=== PATIENT | male | born 1950 | race Caucasian/White ===

== ENCOUNTER → 2018-07-25 | Outpatient (CLI) | payer MEDICARE ==
[2018-07-25 11:53] LABS: HEMATOCRIT 39.1 % (42.0-52.0); HEMOGLOBIN 13.2 g/dl (13.5-17.5); MEAN CORPUSCULAR HEMOGLOBIN 29.7 pg (27.0-33.0); MEAN CORPUSCULAR HGB CONC 33.8 g/dl (32.0-36.5); MEAN CORPUSCULAR VOLUME 87.9 fl (80.0-96.0); PLATELET COUNT, AUTOMATED 249 10^3/uL (150-450); RED BLOOD COUNT 4.45 10^6/uL (4.30-6.10); WHITE BLOOD COUNT 5.9 10^3/uL (4.0-10.0)
[2018-07-25 12:14] LABS: ALBUMIN 3.9 GM/DL (3.2-5.2); ALT/SGPT 24 U/L (12-78); BILIRUBIN,TOTAL 0.3 MG/DL (0.2-1.0); BLOOD UREA NITROGEN 16 MG/DL (7-18); CALCIUM LEVEL 8.4 MG/DL (8.8-10.2); CARBON DIOXIDE LEVEL 26 MEQ/L (21-32); CHLORIDE LEVEL 110 MEQ/L (98-107); CHOLESTEROL LEVEL 167 MG/DL (<200); CHOLESTEROL RISK RATIO 3.092 (<5); CREATININE FOR GFR 1.05 MG/DL (0.70-1.30); GLOMERULAR FILTRATION RATE > 60.0 (>49); GLUCOSE, FASTING 99 MG/DL (70-100); HDL CHOLESTEROL 54 MG/DL (>40); LDL CHOLESTEROL 86 MG/DL (<100); NON-HDL-C 113 MG/DL; POTASSIUM SERUM 3.8 MEQ/L (3.5-5.1); SODIUM LEVEL 142 MEQ/L (136-145); TOTAL PROTEIN 7.6 GM/DL (6.4-8.2); TRIGLYCERIDES LEVEL 133 MG/DL (<150)
--- NOTE | 2018-07-25 14:29 | REP ---
Clinical: Hypertension . Comparison: 06/13/2015 . Technique: PA and lateral. Findings: The mediastinum and cardiac silhouette are normal. The lung lauren are clear and without acute consolidation, effusion, or pneumothorax. The skeletal structures are intact and normal. Impression: 1. No acute cardiopulmonary process. Electronically Signed by Javon Acuña MD 07/25/2018 02:20 P
== END ==
LOC: M LAB 10:58
PROVIDERS: ATTEND Family Medicine
DX: R53.83 Other fatigue (principal); E03.9 Hypothyroidism, unspecified; I51.7 Cardiomegaly

== ENCOUNTER → 2018-11-14 | Outpatient (CLI) | payer MEDICARE ==
[2018-11-14 07:21] LABS: BLOOD UREA NITROGEN 22 MG/DL (7-18); CARBON DIOXIDE LEVEL 28 MEQ/L (21-32); CHLORIDE LEVEL 110 MEQ/L (98-107); CPK CREATINE PHOSPHOKINASE 160 U/L (39-308); CREATININE FOR GFR 1.23 MG/DL (0.70-1.30); GLOMERULAR FILTRATION RATE > 60.0 (>49); GLUCOSE, FASTING 98 MG/DL (70-100); MAGNESIUM LEVEL 2.1 MG/DL (1.8-2.4); SODIUM LEVEL 142 MEQ/L (136-145)
== END ==
LOC: M LAB 06:28
PROVIDERS: ATTEND Internal Medicine Cardiovascular Disease
DX: R25.2 Cramp and spasm (principal)

== ENCOUNTER 2019-09-10 09:57 | Emergency (ER) | payer MEDICARE ==
[~2019-09-10] VITALS: Ht 167.6 cm; Wt 88.6 kg
[2019-09-10] MEDS ORDERED: PANT40TA3 (10:10)
[2019-09-10] MEDS ORDERED: SILD100T (10:10)
[2019-09-10] MEDS ORDERED: AMLO-179 (10:10)
[2019-09-10] MEDS ORDERED: SIMV40TA20 (10:10)
[2019-09-10] MEDS ORDERED: BRIM0.2S13 (10:10)
[2019-09-10] MEDS ORDERED: HYDR12.55 (10:10)
[2019-09-10] MEDS ORDERED: MORPHINE 4 MG/ML 1ML VIAL/SYRINGE (J2270) As Ordered ONE (10:55)
[2019-09-10] MEDS ORDERED: MORPHINE 4 MG/ML 1ML VIAL/SYRINGE (J2270) IV ONE (11:00)
--- NOTE | 2019-09-10 11:41 | REP ---
TIB/FIB SERIES: Four views. HISTORY: Trauma. FINDINGS: Four views of the right tibia and fibula demonstrate a distal fibular fracture in the distal fibular diaphysis. There is slight comminution. No significant displacement. There is a transversely oriented medial malleolar fracture as well. Mortise is intact. The patient is status post previous open reduction internal fixation for calcaneal fracture. IMPRESSION: Distal tib/fib fractures at the ankle as above. No proximal fracture is seen. Electronically Signed by Danny White MD 09/10/2019 02:07 P
[2019-09-10 11:45] VITALS: BP 121/72
--- NOTE | 2019-09-10 11:54 | REP ---
RIGHT ANKLE SERIES: Four views. HISTORY: Trauma. FINDINGS: Four views right ankle demonstrate a comminuted transversely oriented distal fibular diaphyseal fracture and a horizontally oriented minimally displaced medial malleolar fracture. Medial malleolar fracture fragment is displaced 2 mm with corresponding subtle intra-articular step-off. There is a posterior malleolar fracture noted as well. No dislocation. Prior open reduction internal fixation calcaneal fracture hardware is seen. IMPRESSION: Trimalleolar fracture without dislocation. Electronically Signed by Danny White MD 09/10/2019 02:08 P
--- NOTE | 2019-09-10 11:56 | REP ---
REASON: Trauma. PRIORS: None. Patient is status post ORIF of the os calcis. There are degenerative and postoperative changes seen throughout the foot. There is no evidence of an acute foot fracture. There is evidence of posterior malleolar fracture and distal fibular fracture better imaged on the ankle series. IMPRESSION: Chronic changes. No evidence of any fracture involving the foot. Electronically Signed by Gerardo Mcwilliams DO 09/10/2019 12:51 P
[2019-09-10] MEDS ORDERED: OXYC1TAB23 PO (12:10)
[2019-09-10] MEDS ORDERED: PERCOCET 5MG/325MG TAB PO ONE (12:30)
[2019-09-10] MEDS ORDERED: PERCOCET 5MG/325MG TAB As Ordered ONE (12:31)
[2019-09-10] MEDS ORDERED: PERC5TAB12 PO (12:34)
[2019-09-12] MEDS ORDERED: DESL5TAB11 PO (15:45)
[2019-09-12] MEDS ORDERED: ECOT81TA5 PO (15:45)
== END 2019-09-10 12:40 | disposition home or self-care (01) ==
LOC: M ED 09:57
DX: S82.851A Displaced trimalleolar fracture of right lower leg, initial encounter for closed fracture (principal); X50.9XXA Other and unspecified overexertion or strenuous movements or postures, initial encounter; Y92.89 Other specified places as the place of occurrence of the external cause; Y99.0 Civilian activity done for income or pay; I10 Essential (primary) hypertension; E78.5 Hyperlipidemia, unspecified; K21.9 Gastro-esophageal reflux disease without esophagitis; Z79.899 Other long term (current) drug therapy; Z79.82 Long term (current) use of aspirin
CPT/HCPCS: 29515; 73590; 73610; 73630; 96374; 99284; J2270

== ENCOUNTER → 2019-09-17 | Outpatient (CLI) | payer MEDICARE ==
[~2019-09-17] MED LIST: AMLO-179; BRIM0.2S13; CVS1CAP2 PO; DESL5TAB11 PO; ECOT81TA5 PO; HYDR12.55; OXYC1TAB23 PO; PANT40TA3; PERC5TAB12 PO; SILD100T; SIMV40TA20
== END ==
LOC: M LABSMTC 09:59
PROVIDERS: ATTEND Anesthesiology
DX: Z01.812 Encounter for preprocedural laboratory examination (principal); Z11.59 Encounter for screening for other viral diseases
CPT/HCPCS: C9803; U0002

== ENCOUNTER → 2019-09-17 | Outpatient (CLI) | payer MEDICARE ==
[2019-09-17 11:44] LABS: HEMATOCRIT 38.8 % (42.0-52.0); HEMOGLOBIN 12.8 g/dl (13.5-17.5); MEAN CORPUSCULAR HEMOGLOBIN 29.2 pg (27.0-33.0); MEAN CORPUSCULAR VOLUME 88.4 fl (80.0-96.0); PLATELET COUNT, AUTOMATED 272 10^3/uL (150-450); RED BLOOD COUNT 4.39 10^6/uL (4.30-6.10); WHITE BLOOD COUNT 5.6 10^3/uL (4.0-10.0)
[2019-09-17 11:54] LABS: INR 1.02; PROTHROMBIN TIME 13.1 SECONDS (11.8-14.0)
[2019-09-17 11:55] LABS: PARTIAL THROMBOPLASTIN TIME 29.3 SECONDS (25.0-38.4)
[2019-09-17 12:04] LABS: POTASSIUM SERUM 4.3 MEQ/L (3.5-5.1)
== END ==
LOC: M LAB 10:29
PROVIDERS: ATTEND Orthopaedic Surgery Sports Medicine
DX: Z01.818 Encounter for other preprocedural examination (principal); Z79.01 Long term (current) use of anticoagulants

== ENCOUNTER 2019-09-19 13:01 | Day surgery (SDC) | payer MEDICARE ==
[~2019-09-19] VITALS: Ht 167.6 cm; Wt 87.5 kg
[~2019-09-19 13:01] MED LIST changes: -CVS1CAP2 PO; +LR 1,000 ML IV SCH; +ceFAZolin SOD 2 GM in IV 1 EA IV SCH
[2019-09-19] MEDS ORDERED: EPINEPHrine INJ 1 MG/ML 1ML AMP ONE (13:02)
[2019-09-19] MEDS ORDERED: dexameTHASONE 10MG/1ML VIAL PRES.FREE (J1100 PER 1MG) ONE (13:02)
[2019-09-19] MEDS ORDERED: ROPIvacaine 0.5% 30ML INJECTION (J2795 PER 1MG) ONE (13:02)
[2019-09-19] MEDS ORDERED: CVS1CAP2 PO (13:28)
[2019-09-19] MEDS ORDERED: ceFAZolin 2 GM/D5W 50 ML IV BAG (J0690 PER 500MG) As Ordered ONE (13:38)
[2019-09-19] MEDS ORDERED: propofoL 200 MG/20 ML VIAL As Ordered ONE (13:42)
[2019-09-19] MEDS ORDERED: MIDAZOLAM INJ 2MG/2ML VIAL (J2250 PER 1MG) As Ordered ONE ×2 (13:42→14:24)
[2019-09-19] MEDS ORDERED: fentaNYL 100 MCG/2 ML INJECTION (J3010) As Ordered ONE ×2 (13:42→14:24)
[2019-09-19] MEDS ORDERED: LIDOCAINE 2% 100MG/5ML SDV (FOR ANES.) As Ordered ONE (13:42)
[2019-09-19] MEDS ORDERED: MIDAZOLAM INJ 2MG/2ML VIAL (J2250 PER 1MG) IV ONE (15:15)
[2019-09-19] MEDS ORDERED: MIDAZOLAM INJ 2MG/2ML VIAL (J2250 PER 1MG) IV SCH (15:30)
[2019-09-19] MEDS ORDERED: BUPIVACAINE/EPIN 0.25% 30 ML VIAL As Ordered ONE (15:30)
[2019-09-19] MEDS ORDERED: fentaNYL 100 MCG/2 ML INJECTION (J3010) IV SCH (15:30)
[2019-09-19] MEDS ORDERED: fentaNYL 100 MCG/2 ML INJECTION (J3010) IV ONE (15:30)
[2019-09-19] MEDS ORDERED: METOCLOPRAMIDE INJ 10MG/2ML VIAL (J2765 PER 1) As Ordered ONE (16:00)
[2019-09-19] MEDS ORDERED: ONDANSETRON 4MG/2ML VIAL As Ordered ONE (16:00)
[2019-09-19] MEDS ORDERED: ePHEDrine SULFATE 25 MG/5 ML(5MG/ML) SYRINGE As Ordered ONE (16:03)
[2019-09-19] MEDS ORDERED: PHENYLephrine HCL 500 MCG/5 ML (100MCG/ML) SYRINGE (J2370) As Ordered ONE (16:20)
[2019-09-19] MEDS ORDERED: ONDANSETRON 4MG/2ML VIAL IV PRN ×2 (17:15)
[2019-09-19] MEDS ORDERED: fentaNYL 100 MCG/2 ML INJECTION (J3010) IV PRN (17:15)
[2019-09-19] MEDS ORDERED: ACETAMINOPHEN TAB 650MG DOSE (2X325MG) PO PRN (17:15)
[2019-09-19] MEDS ORDERED: MORPHINE 2 MG/ML 1ML VIAL (J2270) IV PRN (17:15)
[2019-09-19] MEDS ORDERED: LR 1,000 ML IV SCH ×2 (17:15)
[2019-09-19] MEDS ORDERED: PERCOCET 5MG/325MG TAB PO PRN (17:15)
[2019-09-19] MEDS ORDERED: oxyCODONE 5MG TAB PO PRN (17:15)
[2019-09-19 18:39] VITALS: BP 116/56
--- NOTE | 2019-09-20 08:27 | REP ---
RIGHT ANKLE: Four views. HISTORY: ORIF right ankle. 53 seconds of fluoroscopy time is reported. FINDINGS: A sequence of four last image hold fluoroscopically obtained spot radiographs of the right ankle document screw plate fixation in the distal fibula and medial malleolar pinning. Electronically Signed by Danny White MD 09/20/2019 08:32 A
--- NOTE | 2019-09-22 16:14 | RO ---
DATE OF PROCEDURE: 09/19/2019 PREOPERATIVE DIAGNOSIS: Right ankle fracture. POSTOPERATIVE DIAGNOSIS: Right ankle fracture. PLANNED PROCEDURE: Right ankle open reduction and internal fixation (ORIF). PROCEDURE PERFORMED: Right ankle open reduction and internal fixation (ORIF). SURGEON: Axel Weinberg MD FINISH MENDER: Camila Johnston PA-C [employer] SUPERVISOR: Ash Olvera DO TYPE OF ANESTHETIC: Block plus GA. OPERATIVE PREAMBLE: This 68-year-old man sustained a trimalleolar fracture. The posterior malleolus fracture was quite small, involving perhaps 5% or less of the joint. We talked about the pros, cons, risks, and benefits of nonsurgical management versus open reduction/internal fixation. I recommended surgery. I reiterated the risks in preoperative holding, marked the right lower extremity, and proceeded to surgery. OPERATIVE REPORT: The patient was brought to operating theater. They were placed supine on the operating room table. Bump was placed under the right hip. Bone foam leg positioner was used. Tourniquet was applied to the right thigh and appropriately padded. All bony prominences were padded. Sequential compression devices (SCDs) were used on the down leg. 2 grams of intravenous (IV) Ancef was administered. General anesthesia was induced. The patient had received a block preoperatively. The limb was prepped and draped in the usual sterile fashion, allowing over 3 minutes prep solution drying time. Preoperative time-out was performed, confirming the site, the patient, and the surgery. I began by elevating the leg, exsanguinating the leg with a sterile Esmarch bandage, and inflating the tourniquet to 250 mmHg. Made a standard lateral approach to the distal fibula. I carried dissection down through skin and subcutaneous tissue, achieving meticulous hemostasis. Identified the fracture site. I cleared away any interposed fracture, hematoma, and periosteum. There was a comminuted fracture, butterfly fragments. It was impossible to lag the fracture back together. As such, I chose a five proximal hole [employer] precontoured distal fibula locking plate. I inserted one proximal cortical screw using the 2.5 mm drill and 3.5 mm cortical screws to suck the plate down to the bone. This achieved a good reduction. I took intraoperative AP, mortise, and lateral views of the ankle. Well-aligned and out to length using the dime sign, as well as direct visualization and fluoroscopy. I inserted the proximal cortical screws, as well as the distal 2.7 mm locking screws while pushing the plate down to the bone to secure it. I did not fill the one screw hole at the comminuted butterfly fragment fracture area. This achieved good alignment of the mortise and reduction of the medial malleolus fracture. Next, I turned my attention to the medial malleolus. I made a small 2-inch incision centered over the medial malleolus. I carried dissection down through skin and subcutaneous tissue. I protected the saphenous vein, retracting that anteriorly. I used a 2.0 mm drill to drill one small hole proximal to the fracture site. I cleaned away any interposed fracture, periosteum, and hematoma. I clamped the fracture across using a small pointed reduction forceps. I passed the two wires collinear on the AP and lateral radiographs across the medial malleolar fracture site. I overdrilled this and then inserted two 46 mm long 4.0 mm partially threaded cancellous screws across the fracture site, tightening these down appropriately. I removed the fracture clamp and the wires. Took final radiographs, AP, lateral, and mortise views, to confirm the anatomic reduction, as well as doing intraoperative external rotation, live fluoroscopy stress test, and Cotton test with direct traction and pulling on the fibula. No obvious mortise widening or abnormality or syndesmosis on direct stress test. Tourniquet was taken down. Wounds thoroughly irrigated using normal saline. Subcutaneous tissue was closed with interrupted #2-0 Vicryl sutures and skin with teetee. Skin was cleaned with wet and dry dressing, followed by the application of Adaptic, 4 x 8 gauze, and overwrapped with sterile 6-inch cast padding. Below-knee three-sided wkethhn-fi-Wmnmu splint was then fashioned and overwrapped with 6-inch Miguel Angel bandages. The splint was allowed to harden. Tourniquet removed. Ankle was in neutral position. The patient was woken up from general anesthetic, transferred off the operating room table, and taken to the postanesthetic care unit in stable condition. All sponge, needle, instrument counts were correct. ESTIMATED BLOOD LOSS: 50 mL. PLAN: The patient is to be nonweightbearing for 6 weeks' time. Followup in the office in 2 weeks' time. I communicated to their significant other after the surgery. They should rest, ice, elevate the leg, and leave the dressing on until followup. The assistant paralegal, Camila Johnston, was instrumental in achieving visualization, holding instruments, and completing the surgery. SABRINA
== END 2019-09-19 19:45 | disposition home or self-care (01) ==
LOC: M SDC 13:01
PROVIDERS: ATTEND Orthopaedic Surgery Sports Medicine
DX: S82.851A Displaced trimalleolar fracture of right lower leg, initial encounter for closed fracture (principal); X58.XXXA Exposure to other specified factors, initial encounter; Y92.89 Other specified places as the place of occurrence of the external cause; Y93.9 Activity, unspecified; Y99.9 Unspecified external cause status; I10 Essential (primary) hypertension; E78.5 Hyperlipidemia, unspecified; K21.9 Gastro-esophageal reflux disease without esophagitis; Z79.899 Other long term (current) drug therapy
CPT/HCPCS: 27822; 76000; C1713; J0171; J0690; J1100; J2250; J2370; J2405; J2765; J2795; J3010

== ENCOUNTER → 2020-06-03 | Outpatient (CLI) | payer MEDICARE ==
[~2020-06-03] MED LIST changes: +CVS1CAP2 PO; -LR 1,000 ML IV SCH; +PANT40TA29; -PANT40TA3; -ceFAZolin SOD 2 GM in IV 1 EA IV SCH
--- NOTE | 2020-06-03 16:24 | REP ---
INDICATION: MAZIN RENAL MASSES. COMPARISON: Comparison CT chest study 22 May 2020.. TECHNIQUE: Urinary tract sonography. FINDINGS: Scanning at the level of the urinary bladder shows no abnormality. Renal cortical echogenicity pattern is normal bilaterally and contours are smooth. There is no evidence hydronephrosis mass or calculus in either kidney.. The right kidney measures 11.3 x 6.3 x 5.3 cm. Left renal dimensions are 12.2 x 5.4 x 6.1 cm. There is a septated cyst in the right mid kidney measuring 1.8 cm in greatest diameter. There are cysts in the upper pole of the right kidney measuring low or in 1.2 cm in greatest diameter. There is a shadowing echogenic focus in the lower pole the right kidney 1.3 cm in greatest diameter suggesting an intrarenal calculus. No renal mass lesion is seen. Small cyst seen at the upper pole of the left kidney on CT is not visualized sonographically. IMPRESSION: Right renal cysts. Possible intrarenal nephrolithiasis on the right. No mass lesion seen.. <Electronically signed by Demetrio White > 06/03/20 [id number]
== END ==
LOC: M RAD 12:45
PROVIDERS: ATTEND Physician Assistant
DX: N28.1 Cyst of kidney, acquired (principal)

== ENCOUNTER → 2020-08-05 | Outpatient (CLI) | payer MEDICARE ==
[~2020-08-05] MED LIST changes: +METHACHOLINE KIT (J7674) INH ONE
--- NOTE | 2020-08-05 09:50 | PFTRPT ---
Site: [facility], [address] [place], [address] ID: [id number] Name: CARMENZA CAROLINA Visit Date: 08/05/2020 Second ID: [id number] Referring Doctor: BIMAL Macdonald, Justo Batista Reviewing Doctor: Parag Anne MD Plant Nursery Worker: Jacklyn GREEN RRT Age: 69 : 1950 Sex: Male Race: Height: 66.00 Inches Weight: 199.00 Lbs BSA: 2.00 Order IDs: [id number] Requested Test(s): <RESP-PFT.METH CHAL> Diagnosis: R05 test appear to be valid, although the ATS standard for "end of test" was not met. Review Status: Not Reviewed Pre-Bronch Post-Bronch Pred Actual %Pred Actual %Chng SPIROMETRY FVC (L) 3.86 4.53 117 4.33 -4 FEV1 (L) 2.85 3.85 135 3.68 -4 FEV1/FVC (%) 74 85 115 85 FEF 25% (L/sec) 7.04 9.89 140 8.00 -19 FEF 50% (L/sec) 4.52 7.05 156 5.63 -20 FEF 75% (L/sec) 1.21 1.64 135 1.31 -20 FEF 25-75% (L/sec) 2.23 5.03 225 4.09 -18 FEF Max (L/sec) 7.71 9.89 128 8.03 -18 FIVC (L) 4.49 4.36 -2 FIF 50% (L/sec) 4.52 6.74 149 4.93 -26 FIF Max (L/sec) 6.74 5.04 -25 Expiratory Time (sec) 6.46 5.49 -14 Back Extrap Vol (L) 0.18 0.15 -17 Time To FEFmax (sec) 0.111 0.130 17
== END ==
LOC: M CARPUL 09:04
PROVIDERS: ATTEND Physician Assistant
DX: R05 Cough (principal)
CPT/HCPCS: 94070; 95070; J7674

== ENCOUNTER → 2021-01-01 | Outpatient (CLI) | payer MEDICARE ==
[~2021-01-01] MED LIST changes: -METHACHOLINE KIT (J7674) INH ONE
[2021-01-01 10:42] LABS: ALBUMIN 3.7 GM/DL (3.2-5.2); BILIRUBIN,TOTAL 0.6 MG/DL (0.2-1.0); CALCIUM LEVEL 9.3 MG/DL (8.8-10.2); CHOLESTEROL RISK RATIO 3.207 (<5); CREATININE FOR GFR 1.28 MG/DL (0.70-1.30); GLOMERULAR FILTRATION RATE 59.5 (>49); POTASSIUM SERUM 4.4 MEQ/L (3.5-5.1); TOTAL PROTEIN 7.8 GM/DL (6.4-8.2)
== END ==
LOC: M WUC 08:46
PROVIDERS: ATTEND Physician Assistant
DX: E78.2 Mixed hyperlipidemia (principal)

== ENCOUNTER → 2022-01-12 | Outpatient (CLI) | payer MEDICARE ==
[2022-01-12 07:16] LABS: HEMATOCRIT 41.3 % (42.0-52.0); HEMOGLOBIN 13.8 g/dl (13.5-17.5); MEAN CORPUSCULAR HEMOGLOBIN 29.3 pg (27.0-33.0); MEAN CORPUSCULAR HGB CONC 33.4 g/dl (32.0-36.5); MEAN CORPUSCULAR VOLUME 87.7 fl (80.0-96.0); PLATELET COUNT, AUTOMATED 279 10^3/uL (150-450); RED BLOOD COUNT 4.71 10^6/uL (4.30-6.10); WHITE BLOOD COUNT 5.3 10^3/uL (4.0-10.0)
[2022-01-12 07:51] LABS: HEMOGLOBIN A1c 5.8 %
[2022-01-12 08:01] LABS: ALBUMIN 3.6 GM/DL (3.2-5.2); BILIRUBIN,TOTAL 0.4 MG/DL (0.2-1.0); CALCIUM LEVEL 9.2 MG/DL (8.8-10.2); CHOLESTEROL RISK RATIO 3.094 (<5); CREATININE FOR GFR 1.32 MG/DL (0.70-1.30); GLOMERULAR FILTRATION RATE 57.3 (>49); POTASSIUM SERUM 3.8 MEQ/L (3.5-5.1); PROSTATIC SPECIFIC AG MONITOR 7.03 NG/ML (< 4.00); THYROID STIMULATING HORMONE 1.83 uIU/ML (0.358-3.740); TOTAL PROTEIN 7.6 GM/DL (6.4-8.2)
[2022-01-12 09:45] LABS: TOTAL 25(OH) VITAMIN D 23.9 NG/ML (30.0-100.0)
== END ==
LOC: M LAB 06:37
PROVIDERS: ATTEND Family Medicine
DX: I10 Essential (primary) hypertension (principal); R97.20 Elevated prostate specific antigen [PSA]

== ENCOUNTER → 2022-04-16 | Outpatient (REF) | payer MEDICARE | LOC: M SMT 11:16 | PROVIDERS: ATTEND Urology | DX: R97.20 Elevated prostate specific antigen [PSA] (principal) ==

== ENCOUNTER → 2022-06-30 | Outpatient (CLI) | payer MEDICARE | LOC: M LAB 07:14 | PROVIDERS: ATTEND Urology | DX: C61 Malignant neoplasm of prostate (principal) ==

== ENCOUNTER → 2023-07-22 | Outpatient (CLI) | payer MEDICARE ==
[2023-07-22 07:19] LABS: HEMATOCRIT 39.8 % (42.0-52.0); HEMOGLOBIN 13.4 g/dl (13.5-17.5); MEAN CORPUSCULAR HEMOGLOBIN 30.1 pg (27.0-33.0); MEAN CORPUSCULAR HGB CONC 33.7 g/dl (32.0-36.5); MEAN CORPUSCULAR VOLUME 89.4 fl (80.0-96.0); PLATELET COUNT, AUTOMATED 273 10^3/uL (150-450); RED BLOOD COUNT 4.45 10^6/uL (4.30-6.10); WHITE BLOOD COUNT 5.7 10^3/uL (4.0-10.0)
[2023-07-22 07:49] LABS: ALBUMIN 3.5 G/DL (3.2-5.2); ALKALINE PHOSPHATASE 66 U/L (46-116); ALT/SGPT 34 U/L (7.0-40); AST/SGOT 18 U/L (<34); BILIRUBIN,TOTAL 0.5 MG/DL (0.3-1.2); BLOOD UREA NITROGEN 23 MG/DL (9-23); CALCIUM LEVEL 9.1 MG/DL (8.3-10.6); CARBON DIOXIDE LEVEL 30 MMOL/L (20-31); CHLORIDE LEVEL 108 MMOL/L (98-107); CHOLESTEROL LEVEL 147 MG/DL (<200); CHOLESTEROL RISK RATIO 3.29 (<5); CREATININE FOR GFR 1.26 MG/DL (0.70-1.30); GLOMERULAR FILTRATION RATE > 60.0 (>42); GLUCOSE, FASTING 106 MG/DL (74-106); HDL CHOLESTEROL 44.6 MG/DL (>40); LDL CHOLESTEROL 85.6 MG/DL (<100); MAGNESIUM LEVEL 1.7 MG/DL (1.8-2.4); NON-HDL-C 102.4 MG/DL; POTASSIUM SERUM 3.7 MMOL/L (3.5-5.1); SODIUM LEVEL 140 MMOL/L (136-145); TESTOSTERONE 519 NG/DL (241-827); THYROID STIMULATING HORMONE 1.699 uIU/ML (0.55-4.78); TOTAL PROTEIN 6.9 G/DL (5.7-8.2); TRIGLYCERIDES LEVEL 84 MG/DL (<150)
[2023-07-22 08:55] LABS: HEMOGLOBIN A1c 5.8 % (4.0-6.0)
== END ==
LOC: M LAB 06:26
PROVIDERS: ATTEND Family Medicine
DX: I10 Essential (primary) hypertension (principal); R53.83 Other fatigue; E03.9 Hypothyroidism, unspecified

== ENCOUNTER → 2023-11-09 | Outpatient (CLI) | payer MEDICARE ==
[2023-11-09 07:18] LABS: HEMATOCRIT 40.4 % (42.0-52.0); HEMOGLOBIN 13.6 g/dl (13.5-17.5); MEAN CORPUSCULAR HGB CONC 33.7 g/dl (32.0-36.5); PLATELET COUNT, AUTOMATED 265 10^3/uL (150-450); RED BLOOD COUNT 4.54 10^6/uL (4.30-6.10); WHITE BLOOD COUNT 5.8 10^3/uL (4.0-10.0)
[2023-11-09 07:30] LABS: HEMOGLOBIN A1c 5.4 % (4.0-6.0)
[2023-11-09 07:47] LABS: PROSTATIC SPECIFIC AG MONITOR 6.12 NG/ML (< 4.00)
[2023-11-09 07:50] LABS: ALBUMIN 3.7 G/DL (3.2-5.2); BILIRUBIN,TOTAL 0.5 MG/DL (0.3-1.2); CALCIUM LEVEL 9.6 MG/DL (8.3-10.6); CHOLESTEROL RISK RATIO 3.73 (<5); CREATININE FOR GFR 1.35 MG/DL (0.70-1.30); GLOMERULAR FILTRATION RATE 55.6 (>42); HDL CHOLESTEROL 40.7 MG/DL (>40); LDL CHOLESTEROL 93.1 MG/DL (<100); NON-HDL-C 111.3 MG/DL; POTASSIUM SERUM 3.6 MMOL/L (3.5-5.1); TOTAL PROTEIN 7.1 G/DL (5.7-8.2)
[2023-11-09 07:51] LABS: THYROID STIMULATING HORMONE 1.663 uIU/ML (0.55-4.78)
== END ==
LOC: M RAD 06:22
PROVIDERS: ATTEND Family Medicine
DX: I10 Essential (primary) hypertension (principal); R53.83 Other fatigue; R97.20 Elevated prostate specific antigen [PSA]

== ENCOUNTER → 2024-02-06 | Outpatient (CLI) | payer MEDICARE | LOC: M LAB 06:42 | PROVIDERS: ATTEND Urology | DX: C61 Malignant neoplasm of prostate (principal) ==

== ENCOUNTER → 2024-05-17 | Outpatient (CLI) | payer MEDICARE ==
[2024-05-17 07:18] LABS: BLOOD UREA NITROGEN 22 MG/DL (9-23); CREATININE FOR GFR 1.22 MG/DL (0.70-1.30); GLOMERULAR FILTRATION RATE > 60.0 (>42)
== END ==
LOC: M LAB 06:10
PROVIDERS: ATTEND Psychiatry & Neurology Neurology
DX: I10 Essential (primary) hypertension (principal)

== ENCOUNTER → 2024-06-27 | Outpatient (CLI) | payer MEDICARE ==
[2024-06-27 07:43] LABS: HEMATOCRIT 41.7 % (42.0-52.0); HEMOGLOBIN 14.1 g/dl (13.5-17.5); MEAN CORPUSCULAR HEMOGLOBIN 30.1 pg (27.0-33.0); MEAN CORPUSCULAR HGB CONC 33.8 g/dl (32.0-36.5); MEAN CORPUSCULAR VOLUME 89.1 fl (80.0-96.0); PLATELET COUNT, AUTOMATED 262 10^3/uL (150-450); RED BLOOD COUNT 4.68 10^6/uL (4.30-6.10); WHITE BLOOD COUNT 5.5 10^3/uL (4.0-10.0)
[2024-06-27 07:57] LABS: INR 0.98; PROTHROMBIN TIME 13.3 SECONDS (12.5-14.5)
[2024-06-27 08:01] LABS: PROSTATIC SPECIFIC AG MONITOR 7.13 NG/ML (< 4.00)
[2024-06-27 08:03] LABS: ALBUMIN 3.6 G/DL (3.2-5.2); BILIRUBIN,TOTAL 0.8 MG/DL (0.3-1.2); CALCIUM LEVEL 9.1 MG/DL (8.3-10.6); CHOLESTEROL RISK RATIO 3.29 (<5); CREATININE FOR GFR 1.35 MG/DL (0.70-1.30); GLOMERULAR FILTRATION RATE 55.5 (>42); HDL CHOLESTEROL 47.3 MG/DL (>40); LDL CHOLESTEROL 87.7 MG/DL (<100); NON-HDL-C 108.7 MG/DL; POTASSIUM SERUM 3.7 MMOL/L (3.5-5.1); TOTAL PROTEIN 7.4 G/DL (5.7-8.2)
[2024-06-27 08:05] LABS: THYROID STIMULATING HORMONE 2.438 uIU/ML (0.55-4.78); TOTAL 25(OH) VITAMIN D 36.2 NG/ML (20.0-100.0)
[2024-06-27 08:30] LABS: HEMOGLOBIN A1c 5.7 % (4.0-6.0)
== END ==
LOC: M LAB 07:18
PROVIDERS: ATTEND Family Medicine
DX: I10 Essential (primary) hypertension (principal); Z79.01 Long term (current) use of anticoagulants; R97.20 Elevated prostate specific antigen [PSA]

== ENCOUNTER → 2024-07-17 | Outpatient (CLI) | payer MEDICARE | LOC: M RAD 10:20 | PROVIDERS: ATTEND Family Medicine | DX: I65.22 Occlusion and stenosis of left carotid artery (principal) ==

== ENCOUNTER → 2024-08-13 | Outpatient (CLI) | payer MEDICARE | LOC: M WUC 08:15 | PROVIDERS: ATTEND Urology | DX: C61 Malignant neoplasm of prostate (principal) ==

== ENCOUNTER → 2024-12-03 | Outpatient (REF) | payer MEDICARE ==
[~2024-12-03] MED LIST changes: +AMLO2.5T3 PO; +ATOR80TA59 PO; +CLOP75TA2 PO; +DULO1CAP4 PO; +EZET10TA21 PO; +HYDR-3490 PO; +LATA1DRO OU; +METO1TAB87 PO; -PANT40TA29; +PANT40TA29 PO; +TIMO0.5S20 OU
[2024-12-03 18:46] LABS: CREATININE FOR GFR 1.58 MG/DL (0.70-1.30); GLOMERULAR FILTRATION RATE 46.5 (>42)
== END ==
LOC: M LABWUC 17:33
PROVIDERS: ATTEND Psychiatry & Neurology Neurology
DX: I10 Essential (primary) hypertension (principal)

== ENCOUNTER → 2024-12-17 | Outpatient (CLI) | payer MEDICARE ==
[2024-12-17 13:12] LABS: ALT/SGPT 29.0 U/L (7.0-40); AST/SGOT 23.0 U/L (<34); CALCIUM LEVEL 8.6 MG/DL (8.3-10.6); CARBON DIOXIDE LEVEL 26.0 MMOL/L (20-31); CHLORIDE LEVEL 107.0 MMOL/L (98-107); CREATININE FOR GFR 1.29 MG/DL (0.70-1.30); GLOMERULAR FILTRATION RATE 59.3 (>42); POTASSIUM SERUM 4.3 MMOL/L (3.5-5.1); SODIUM LEVEL 144.0 MMOL/L (136-145)
== END ==
LOC: M WUC 09:03
PROVIDERS: ATTEND Nurse Practitioner Acute Care
DX: I50.20 Unspecified systolic (congestive) heart failure (principal)

== ENCOUNTER → 2025-03-04 | Outpatient (CLI) | payer MEDICARE ==
[~2025-03-04] MED LIST changes: -EZET10TA21 PO; +EZET10TA57 PO
[2025-03-04 14:28] LABS: ALT/SGPT 31.0 U/L (7.0-40); AST/SGOT 23.0 U/L (<34); CALCIUM LEVEL 9.0 MG/DL (8.3-10.6); CARBON DIOXIDE LEVEL 26.0 MMOL/L (20-31); CHLORIDE LEVEL 105.0 MMOL/L (98-107); CREATININE FOR GFR 1.29 MG/DL (0.70-1.30); GLOMERULAR FILTRATION RATE 58.9 (>42); POTASSIUM SERUM 4.7 MMOL/L (3.5-5.1); PROSTATIC SPECIFIC AG MONITOR 5.21 NG/ML (< 4.00); SODIUM LEVEL 140.0 MMOL/L (136-145)
== END ==
LOC: M WUC 08:52
PROVIDERS: ATTEND Urology
DX: C61 Malignant neoplasm of prostate (principal)

== ENCOUNTER → 2025-03-04 | Outpatient (CLI) | payer MEDICARE ==
[~2025-03-04] MED LIST changes: +PROHANCE 279.3MG/ML 15ML VIAL ONE; +PROHANCE 279.3MG/ML 5ML VIAL ONE
== END ==
LOC: M PLAIMG 12:53
PROVIDERS: ATTEND Urology
DX: C61 Malignant neoplasm of prostate (principal)
CPT/HCPCS: 72197; A9576